=== PATIENT | male | born 1990 | race Caucasian/White ===

== ENCOUNTER → 2020-07-10 10:18 | Outpatient (BNVA) | payer OTHER, SELFPAY | PROVIDERS: Visit Provider Nurse Practitioner Family | DX: Z11.59 Encounter for screening for other viral diseases (principal); Z20.828 Contact with and (suspected) exposure to other viral communicable diseases; J06.9 Acute upper respiratory infection, unspecified | CPT/HCPCS: 87635 ==

== ENCOUNTER 2021-04-04 06:34 | Emergency (ER) | payer BC, SELFPAY ==
[2021-04-04 06:55] VITALS: BP 134/85; PULSE 81; RESP 18; TEMP 37.1; O2SAT 99; BMI 20.9
--- NOTE | 2021-04-04 07:03 | ED_ITS ---
HPI - Extremity Problem General: Chief complaint: Extremity Problem,Nontraumatic Stated complaint: R shoulder pain Time Seen by Provider: 04/04/21 07:03 History of Present Illness: HPI Narrative: Patient is a 31-year-old male who comes to the ED with right shoulder pain. Patient has been having this pain for about a week now. Pain is located in the right shoulder blade region. Any abduction of right arm causes and pain. Denies any injury or trauma. Patient works as a manual ammunition assembly i laborer. Associated symptoms: Deny chest pain, fever(s) or rash Review of Systems Const: Denies: fever(s), chills or fatigue Eyes: Denies: change in vision or eye discomfort ENMT: Denies: throat pain, odynophagia, nasal discharge or nasal congestion Card: Denies: chest pain, palpitations, edema, swelling of feet/ankles, dyspnea on exertion or orthopnea Resp: Denies: dyspnea, productive cough or non-productive cough GI: Denies: abdominal pain, nausea, vomiting, diarrhea, constipation or hematochezia : Denies: flank pain, difficulty urinating, dysuria or hematuria Musc: Reports: extremity pain (right shoulder); Denies: neck pain, back pain or extremity swelling Skin/Breast: Denies: rash or new lesions Neuro: Denies: headache(s), numbness in extremities or weakness in extremities Physical Exam Const: COMMON NORMALS: no acute distress, patient oriented x3 and alert GENERAL APPEARANCE: cooperative and comfortable HENMT: COMMON NORMALS: normocephalic HEAD & SCALP: normocephalic MOUTH: Normal oral and palatal mucosa present THROAT: posterior oropharynx normal and uvula midline Neck/C-Spine: COMMON NORMALS: supple GENERAL: Yes normal visual inspection Resp: COMMON NORMALS: normal respiratory effort, No retractions, No use of accessory muscles and clear to auscultation bilaterally AUSCULTATION: clear to auscultation bilaterally Cardio: COMMON NORMALS: regular rate, regular rhythm, S1 normal heart sound present, S2 normal heart sound present, No gallops present (Cardio), No clicks present (Cardio), No murmurs present (Cardio) and Peripheral pulses 2+ throughout RATE: regular rate RHYTHM: regular rhythm HEART SOUNDS: S1 normal heart sound present and S2 normal heart sound present PERIPHERAL PULSES: Peripheral pulses 2+ throughout GI: COMMON NORMALS: Normal to inspection, nondistended, normoactive bowel sounds present, Soft to palpation, non-tender and no masses PALPATION: Yes Soft to palpation : COMMON NORMALS: Yes no CVA tenderness BLADDER/KIDNEY EXAM: Yes no CVA tenderness Back/Pelvis: COMMON NORMALS: no CVA tenderness Extremity: NARRATIVE EXTREMITY EXAM: Right shoulder?point soft tissue muscle tenderness on the inferior aspect of shoulder blade. No visible deformity seen. Range of motion normal. Neurovascular intact. Neuro: COMMON NORMALS: patient oriented x3 and moves all extremities SENSORIUM/ORIENTATION: Yes alert Skin: GENERAL SKIN EXAM: dry skin Course Vital Signs: Vital signs: Vital Signs Temperature 98.7 F 04/04/21 06:55 Pulse Rate 61 04/04/21 07:07 Respiratory Rate 15 04/04/21 07:07 Blood Pressure 128/77 04/04/21 07:07 Pulse Oximetry 99 04/04/21 07:07 MDM - Extremity (Nontraumatic) Imaging Data^: Xray Ortho: Attestation: I personally reviewed and interpreted this imaging study as follows: Radiologist's impression: [address], [place] [address]MLkh ReportSigned Patient: Roberto Ahn LUnmorales #: [id number]: 1990Acct#:[id number]/Sex: 31 MADM Date: 04/04/21Loc: ERRoom/Bed:Attending Dr: Ordering Provider/Ordering MD: Miguel Berry Date of Service: 04/04/21 Procedure(s): XR shoulder RT min 2V* [id number] Accession Number(s): [id number] Report Number: [id number] PROCEDURE INFORMATION: Exam: XR Right Shoulder Exam date and time: 04/04/2021 7:18 AM Age: 31 years old Clinical indication: Pain; Shoulder; Right; Additional info: Shoulder pain TECHNIQUE: Imaging protocol: XR Right shoulder. Views: 2 or more views. COMPARISON: No relevant prior studies available. FINDINGS: Bones/joints: No acute osseous pathology. Soft tissues: Unremarkable soft tissues. Other findings: Anatomic alignment. XR/XR shoulder RT min 2V* [id number] IMPRESSION: No acute osseous pathology. Dictated By:Carlitos Nagel MDSigned By:Carlitos Nagel MDSigned Date/Time:04/04/21 0950DD/ Discharge Plan Discharge Patient Disposition: Home Clinical Impression: Muscle strain of right shoulder region Qualifiers: Encounter type: initial encounter Qualified Code(s): S46.911A - Strain of unspecified muscle, fascia and tendon at shoulder and upper arm level, right arm, initial encounter Condition: Stable Prescriptions: New Celebrex 100 mg capsule 100 mg PO BID Qty: 20 RF: 0 cyclobenzaprine 10 mg tablet 10 mg PO BID PRN (Reason: muscle spasm) Qty: 12 RF: 0 No Action No Known Home Medications RF: 0 Discharge Orders: Discharge ED (Routine); Ordered 04/04/21 Ordered By: Miguel Berry Discharge Diet: Regular Discharge Activity: Increase activity as tolerated Patient Instructions: Muscle Strain (ED) Activity Restrictions/Additional Instructions: Follow-up with medical provider as directed in 7 to 10 days reevaluation. Wear shoulder sling for the next 1 to 2 days to allow the right shoulder to rest and heal. Remember though to take out your right arm from sling multiple times over the next 48 hours to do some range of motion exercises to prevent frozen shoulder. Take medications as prescribed. Apply cold pack on right shoulder area as well. Return to the ER or your medical provider if condition worsens. Please read and understand discharge instructions. Thank you for choosing [facility] for your healthcare needs today. Please realize this is an emergency room and that we are providing you with a medical screening exam and this may not be complete and all inclusive of all the testing and or work up that you may need to determine your ailment or severity of your illness. It is very important that you follow up as instructed or that you return to the Emergency Department should you have concerns or if your condition changes or worsens in any way. Stand Alone Forms: Work/School Release Coding Level of Care Code ED Genetics Nurse for Samreen Gay Exam Comprehensive
[2021-04-04 07:07] VITALS: BP 128/77; PULSE 61; RESP 15; O2SAT 99
--- NOTE | 2021-04-04 07:18 | XRR_ITS ---
PROCEDURE INFORMATION: Exam: XR Right Shoulder Exam date and time: 04/04/2021 7:18 AM Age: 31 years old Clinical indication: Pain; Shoulder; Right; Additional info: Shoulder pain TECHNIQUE: Imaging protocol: XR Right shoulder. Views: 2 or more views. COMPARISON: No relevant prior studies available. FINDINGS: Bones/joints: No acute osseous pathology. Soft tissues: Unremarkable soft tissues. Other findings: Anatomic alignment. XR/XR shoulder RT min 2V* [id number] IMPRESSION: No acute osseous pathology.
[2021-04-04] MEDS: orphenadrine 30 mg/mL Inj 2 mL 60 MG IM (07:24)
[2021-04-04] MEDS: ketorolac 60 mg/2 mL INJ IM (07:24)
== END 2021-04-04 07:54 | disposition home or self-care (01) ==
PROVIDERS: Emergency Provider Physician Assistant
DX: S46.911A Strain of unspecified muscle, fascia and tendon at shoulder and upper arm level, right arm, initial encounter (principal); X58.XXXA Exposure to other specified factors, initial encounter
CPT/HCPCS: 73030; 96372; 99283; J1885; J2360

== ENCOUNTER 2021-05-27 11:24 | Outpatient (CLI) | payer BC, SELFPAY ==
[2021-05-27 12:12] LABS: Sperm Present Sperm Not Present
== END 2021-05-27 11:25 | disposition home or self-care (01) ==
LOC: LAB 11:29
PROVIDERS: Visit Provider Urology
DX: Z98.52 Vasectomy status (principal)
CPT/HCPCS: 89310

== ENCOUNTER 2021-08-22 23:35 | Emergency (ER) | payer BC, SELFPAY ==
[2021-08-22 23:40] VITALS: BP 130/84; PULSE 78; RESP 18; TEMP 36.4; O2SAT 100; BMI 21.0
--- NOTE | 2021-08-23 03:53 | XRR_ITS ---
PROCEDURE INFORMATION: Exam: XR Thoracic Spine Exam date and time: 08/23/2021 3:53 AM Age: 31 years old Clinical indication: Pain in thoracic spine; Additional info: Upper back pain TECHNIQUE: Imaging protocol: XR of the thoracic spine. Views: 3 views. COMPARISON: No relevant prior studies available. FINDINGS: Bones/joints: Normal. No acute fracture. Normal alignment. Soft tissues: Unremarkable. XR/XR thoracic spine 3V* [id number] IMPRESSION: No acute findings. Radiation Dose CTDIVOL = (mGy): DLP = (mGy-cm)
--- NOTE | 2021-08-23 04:12 | ED_ITS ---
HPI - Back Pain/Injury General: Chief Complaint: Back Pain/Injury Stated Complaint: Upper back pain Time Seen by Provider: 08/23/21 03:40 History of Present Illness: HPI Narrative: 31-year-old male who claims his left upper back started hurting a couple of days ago. It was made worse yesterday evening at work, and he came here after he clocked out of work due to the pain. He localizes the pain along the medial scapular border on the left. No cough, no fever, no shortness of breath, no chest pain. No pain with deep breathing. No known injury. MD elicited complaint: back pain Pertinent past history: prior back pain Onset (ago): hour(s) Timing: constant and progressively worsening Quality: sharp Location: thoracic spine Radiation: none Exacerbating factors: movement Relieving factors: none Context: unknown Associated symptoms: Deny abdominal pain, dysuria, fever(s), hematuria, nausea, numbness or tingling/numbness/burning Review of Systems Const: Denies: fever(s) Card: Denies: chest pain or palpitations Resp: Denies: dyspnea, productive cough or non-productive cough GI: Denies: abdominal pain or nausea : Denies: dysuria or hematuria Physical Exam Const: COMMON NORMALS: no acute distress, patient oriented x3 and alert GENERAL APPEARANCE: not ill appearing HENMT: COMMON NORMALS: normocephalic and atraumatic HEAD & SCALP: normocephalic and atraumatic Eye: COMMON NORMALS: Equal, round and reactive pupils present and EOMs intact bilaterally PUPIL: Yes Equal, round and reactive pupils present Chest: COMMONS NORMALS: normal inspection of the chest Resp: COMMON NORMALS: normal respiratory effort, No use of accessory muscles and clear to auscultation bilaterally AUSCULTATION: clear to auscultation bilaterally Cardio: COMMON NORMALS: regular rate and regular rhythm RATE: regular rate RHYTHM: regular rhythm GI: COMMON NORMALS: Normal to inspection, nondistended, normoactive bowel sounds present, Soft to palpation and non-tender PALPATION: Yes Soft to palpation Back/Pelvis: COMMON NORMALS: thoracic and lumbar spine normal to inspection THORACIC SPINE/UPPER BACK: Yes thoracic spinal tenderness (on left. no midline) T-spine tenderness location: T7 and T8 Neuro: COMMON NORMALS: patient oriented x3 SENSORIUM/ORIENTATION: Yes alert Course Vital Signs: Vital signs: Vital Signs Temperature 97.6 F 08/22/21 23:40 Pulse Rate 78 08/22/21 23:40 Respiratory Rate 18 08/22/21 23:40 Blood Pressure 130/84 08/22/21 23:40 Pulse Oximetry 100 08/22/21 23:40 MDM - Back Pain/Injury MDM Narrative: Medical decision making narrative: X-ray negative for subluxation, fracture, or pneumothorax. Discharge Plan Discharge Patient Disposition: Home Clinical Impression: Thoracic back pain Qualifiers: Chronicity: acute Back pain laterality: left Qualified Code(s): M54.6 - Pain in thoracic spine Condition: Stable Prescriptions: New ketorolac 10 mg tablet 10 mg PO TID PRN (Reason: pain) Qty: 10 RF: 0 Continued cyclobenzaprine 10 mg tablet 10 mg PO BID PRN (Reason: muscle spasm) Qty: 12 RF: 0 Discontinued celecoxib [Celebrex] 100 mg capsule 100 mg PO BID Qty: 20 RF: 0 Discharge Orders: Discharge ED (Routine); Ordered 08/23/21 Ordered By: Porter Lopez Patient Instructions: Opioid Safety Activity Restrictions/Additional Instructions: Return for fever greater than 100, cough, shortness of breath, chest pain with the back pain, any other concerning symptoms. Coding Level of Care Code ED Construction Supervisor for Samreen Fwd Exam Comprehensive
[2021-08-23 04:53] VITALS: BP 135/71; PULSE 74; RESP 18; O2SAT 97
[2021-08-23] MEDS: oxyCODONE-APAP 5-325 mg Tablet 2 TAB PO (04:53)
== END 2021-08-23 04:57 | disposition home or self-care (01) ==
PROVIDERS: Emergency Provider Emergency Medicine
DX: M54.6 Pain in thoracic spine (principal)
CPT/HCPCS: 72072; 99283

== ENCOUNTER 2022-04-15 22:34 | Emergency (ER) | payer BC, SELFPAY ==
--- NOTE | 2022-04-15 22:34 | CTR_ITS ---
PROCEDURE INFORMATION: Exam: CT Head Without Contrast Exam date and time: 04/15/2022 10:37 PM Age: 32 years old Clinical indication: Pain; Headache not specified; Patient HX: C/O sudden onset severe MYLES; Additional info: Headache severe TECHNIQUE: Imaging protocol: Computed tomography of the head without contrast. Radiation optimization: All CT scans at this facility use at least one of these dose optimization techniques: automated exposure control; mA and/or kV adjustment per patient size (includes targeted exams where dose is matched to clinical indication); or iterative reconstruction. COMPARISON: No relevant prior studies available. RADIATION DOSE METRICS: Total DLP (mGy-cm): 1261.98 FINDINGS: Brain: Mild prominence of the left cavernous sinus, (series 3, image 10) may represent partial volume averaging. No hemorrhage. Unremarkable white matter. No mass effect. Cerebral ventricles: No ventriculomegaly. Paranasal sinuses: Mild mucosal thickening in the ethmoid air cells and the sphenoid sinuses. Partially imaged minimal mucous thickening in the maxillary sinuses. A small bony septal spare extends to the left, in contact with the left middle turbinate. No fluid levels. Mastoid air cells: Visualized mastoid air cells are well aerated. Bones/joints: Unremarkable. No acute fracture. Soft tissues: Unremarkable. CT/CT head wo con* [id number] IMPRESSION: 1. Mild prominence of the left cavernous sinus, (series 3, image 10), may represent partial volume averaging. If symptoms persist, MRI of the brain without and with contrast can be performed for further evaluation. 2. Otherwise, no acute intracranial hemorrhage, mass effect, or midline shift. 3. Mild paranasal sinus disease as outlined. Findings were discussed with Dr. Patel by Dr. Alba on 04/15/2022 at 11:15 p.m. with read back comprehension and verification.
[2022-04-15 22:45] VITALS: BP 127/72; PULSE 61; RESP 20; O2SAT 98; BMI 20.9
--- NOTE | 2022-04-15 22:46 | ED_ITS ---
HPI - Headache General: Chief Complaint: Headache Stated Complaint: migraine Time Seen by Provider: 04/15/22 22:36 Source: patient and EMS Mode of arrival: EMS Limitations: no limitations History of Present Illness: 32-year-old male who states he has a history of migraines he states he starting a migraine headache today around 1-2 states is worsened throughout the day states his pain is currently 9 out of 10 he states it feels like his previous migraines he has photophobia and phonophobia. Denies any vomiting has had nausea denies any fevers or head injuries. Associated symptoms: Deny chest pain, fever(s), nausea, rash or vomiting Review of Systems Const: Denies: fever(s), chills, body aches or change in appetite Eyes: Denies: blurry vision or eye discomfort ENMT: Denies: throat pain or dental pain Card: Denies: chest pain Resp: Denies: dyspnea GI: Denies: abdominal pain, nausea, vomiting or diarrhea : Denies: dysuria Musc: Denies: neck pain or back pain Skin/Breast: Denies: rash Neuro: Reports: headache(s) Psych: Denies: depression Nitin/Lymph: Denies: easy bruising All/Imm: Denies: urticaria PFSH ED PFSH: Medical History (Updated 04/16/22 @ 01:35 by Lydia Patel MD) Migraine Social History (Updated 04/15/22 @ 22:47 by Lydia Patel MD) Substance/Drug Use: unknown Physical Exam Const: COMMON NORMALS: no acute distress, patient oriented x3 and healthy appearing HENMT: COMMON NORMALS: normocephalic and atraumatic HEAD & SCALP: normocephalic and atraumatic Eye: COMMON NORMALS: Equal, round and reactive pupils present and EOMs intact bilaterally PUPIL: Yes Equal, round and reactive pupils present Neck/C-Spine: COMMON NORMALS: full ROM and supple Chest: COMMONS NORMALS: normal inspection of the chest and normal palpation of entire chest wall Resp: COMMON NORMALS: normal respiratory effort, No retractions, No use of accessory muscles and clear to auscultation bilaterally AUSCULTATION: clear to auscultation bilaterally Cardio: COMMON NORMALS: regular rate, regular rhythm and No murmurs present (Cardio) RATE: regular rate RHYTHM: regular rhythm GI: COMMON NORMALS: Normal to inspection, nondistended, normoactive bowel sounds present, Soft to palpation, non-tender and no masses PALPATION: Yes Soft to palpation Extremity: COMMON NORMALS: normal to inspection and full ROM Neuro: COMMON NORMALS: patient oriented x3, moves all extremities and no focal motor deficits Psych: COMMON NORMALS: mental status grossly normal, Normal thought process present and cooperative THOUGHT PROCESS: Normal thought process present Skin: COMMON NORMALS: no rashes or lesions noted and no wounds GENERAL SKIN EXAM: no rashes or lesions noted Course Vital Signs: Vital signs: Vital Signs Pulse Rate 61 04/15/22 22:45 Respiratory Rate 20 H 04/15/22 22:45 Blood Pressure 127/72 04/15/22 22:45 Pulse Oximetry 98 04/15/22 22:45 MDM - Headache Medical Decision Making Patient presents here with headache that is likely migraine he feels much im proved here his head CT showed a possible abnormality in the venous sinus MRI showed no signs of venous sinus thrombosis MRI is negative he is stable for discharge he has no signs of meningitis he stable for discharge return if worsening. Lab Data : 04/15/22 22:40 04/15/22 22:[address] 04/15/22 22:34 IMPRESSION: 1. Mild prominence of the left cavernous sinus, (series 3, image 10), may represent partial volume averaging. If symptoms persist, MRI of the brain without and with contrast can be performed for further evaluation. 2. Otherwise, no acute intracranial hemorrhage, mass effect, or midline shift. 3. Mild paranasal sinus disease as outlined. Findings were discussed with Dr. Patel by Dr. Alba on 04/15/2022 at 11:15 p.m. with read back comprehension and verification. Head MRI 04/15/22 23:13 IMPRESSION: 1. Redemonstration of asymmetric prominence of the left cavernous sinus which is likely a normal variant. No evidence of dural venous sinus thrombosis or underlying max is 6 lesions. 2. No evidence of restricted diffusion to suggest an acute infarction. 3. No evidence of abnormally enhancing lesions. 4. Redemonstration of nasal septal deviation to the left with a septal spur in contact with the left inferior turbinate. Contact point headache may contribute to patient's symptoms. Laboratory Results WBC 14.6 10^3/uL (4.0-10.0) H 04/15/22 22:40 RBC 5.33 10^6/uL (4.1-5.3) H 04/15/22 22:40 Hgb 16.3 g/dL (11.7-16.6) 04/15/22 22:40 Hct 48.1 % (42.0-52.0) 04/15/22 22:40 MCV 90.2 fl (80-94) 04/15/22 22:40 MCH 30.6 pg (28.0-34.0) 04/15/22 22:40 MCHC 33.9 g/dL (30.0-36.0) 04/15/22 22:40 RDW 12.9 % (12.1-15.1) 04/15/22:40 Plt Count 402 10^3/cmm (130-400) H 04/15/22 22:40 MPV 10.7 fL (7.4-10.4) H 04/15/22 22:40 Neut % (Auto) 49.8 % 04/15/22 22:40 Lymph % (Auto) 38.7 % 04/15/22 22:40 Calvert % (Auto) 9.3 % 04/15/22 22:40 Eos % (Auto) 1.7 % 04/15/22 22:40 Baso % (Auto) 0.3 % 04/15/22 22:40 Neut # (Auto) 7.24 10^3/uL (1.8-7.7) 04/15/22 22:40 Lymph # (Auto) 5.6 10^3/uL (0.8-4.8) H 04/15/22 22:40 Calvert # (Auto) 1.4 10^3/uL (0.2-0.9) H 04/15/22 22:40 Eos # (Auto) 0.3 10^3/uL (0.0-0.8) 04/15/22 22:40 Baso # (Auto) 0.1 10^3/uL (0.0-0.1) 04/15/22 22:40 Nucleated RBC % (auto) 0 % 04/15/22:40 Nucleated RBCs # 0.0 /100WBC 04/15/22 22:40 Sodium 142 mmol/L (136-145) 04/15/22 22:40 Potassium 4.1 mmol/L (3.5-5.1) 04/15/22 22:40 Chloride 103 mmol/L (98-107) 04/15/22 22:40 Carbon Dioxide 27 mmol/L (22-29) 04/15/22 22:40 Anion Gap 16.1 (5-19) 04/15/22 22:40 BUN 19 mg/dL (6-20) 04/15/22 22:40 Creatinine 0.9 mg/dL (0.7-1.2) 04/15/22 22:40 GFR Calculation 97.8 mL/min (90-130) 04/15/22 22:40 Glucose 87 mg/dL (65-115) 04/15/22 22:40 Calculated Osmolality 296 mOsm/kg (285-295) H 04/15/22 22:40 Calcium 10.1 mg/dL (8.5-10.5) 04/15/22 22:40 Total Bilirubin 0.4 mg/dL (0.15-1.2) 04/15/22 22:40 AST 17 U/L (0-40) 04/15/22 22:40 ALT 19 U/L (0-41) 04/15/22 22:40 Alkaline Phosphatase 88 IU/L (40-130) 04/15/22 22:40 Total Protein 7.0 g/dL (6.6-8.7) 04/15/22 22:40 Albumin 4.6 g/dL (3.5-5.2) 04/15/22 22:40 Globulin 2.4 g/dL (1.3-4.6) 04/15/22 22:40 Discharge Plan Discharge Patient Disposition: Home Clinical Impression: Headache Prescriptions: No Action ketorolac 10 mg tablet 10 mg PO TID PRN (Reason: pain) Qty: 10 0RF cyclobenzaprine 10 mg tablet 10 mg PO BID PRN (Reason: muscle spasm) Qty: 12 0RF Discharge Orders: Discharge ED (Routine); Ordered 04/16/22 Ordered By: Lydia Patel Discharge Diet: Advance as tolerated Discharge Activity: Resume usual activity Patient Instructions: General Headache (ED) Coding Level of Care Code ED Cable Operator for Chg Fwd Exam Comprehensive
[2022-04-15] MEDS: diphenhydrAMINE 50 mg/mL SDV 1mL IVP (22:59)
[2022-04-15] MEDS: metoclopramide 5 mg/mL SDV 2 mL 10 MG IVP (22:59)
--- NOTE | 2022-04-15 23:13 | MRR_ITS ---
PROCEDURE INFORMATION: Exam: MR Head Without Contrast Exam date and time: 04/16/2022 12:18 AM Age: 32 years old Clinical indication: Altered mental status/memory loss; Additional info: MYLES TECHNIQUE: Imaging protocol: Magnetic resonance imaging of the head without contrast. COMPARISON: CT head wo con* [id number] 04/15/2022 10:37 PM FINDINGS: Some of the images are degraded due to motion artifact. Within this limitation: Brain: Redemonstration of asymmetric prominence of the left cavernous sinus which is likely a normal variant. No evidence of sinus thrombosis or underlying mass lesions. No acute infarct. No hemorrhage. Rare T2/FLAIR hyperintense lesions are nonspecific. No edema. No midline shift or significant mass effect. Cerebral ventricles: Stable. No ventriculomegaly. Bones/joints: Unremarkable. Paranasal sinuses: The nasal septum is deviated to the left with a septal spur deforming the left middle and inferior turbinates. Mild paranasal sinus disease is noted. No evidence of acute sinusitis. Mastoid air cells: Normal as visualized. No mastoid effusion. Orbital cavities: Unremarkable. Soft tissues: Unremarkable. MR/MR head wo/w con [id number] IMPRESSION: 1. Redemonstration of asymmetric prominence of the left cavernous sinus which is likely a normal variant. No evidence of dural venous sinus thrombosis or underlying max is 6 lesions. 2. No evidence of restricted diffusion to suggest an acute infarction. 3. No evidence of abnormally enhancing lesions. 4. Redemonstration of nasal septal deviation to the left with a septal spur in contact with the left inferior turbinate. Contact point headache may contribute to patient's symptoms.
[2022-04-15 23:45] LABS: Alanine Aminotransferase 19 U/L (0-41); Albumin Level 4.6 g/dL (3.5-5.2); Alkaline Phosphatase 88 IU/L (40-130); Anion Gap 16.1 (5-19); Aspartate Amino Transferase 17 U/L (0-40); Blood Urea Nitrogen 19 mg/dL (6-20); Calcium 10.1 mg/dL (8.5-10.5); Carbon Dioxide 27 mmol/L (22-29); Chloride 103 mmol/L (98-107); Globulin 2.4 g/dL (1.3-4.6); Glomerular Filtration Rate 97.8 mL/min (90-130); Glucose 87 mg/dL (65-115); Osmolality Calculated 296 mOsm/kg (285-295); Potassium 4.1 mmol/L (3.5-5.1); Sodium 142 mmol/L (136-145); Total Bilirubin 0.4 mg/dL (0.15-1.2)
[2022-04-16 00:04] LABS: Basophils # 0.1 10^3/uL (0.0-0.1); Basophils % 0.3 %; Eosinophils # 0.3 10^3/uL (0.0-0.8); Eosinophils % 1.7 %; Hematocrit 48.1 % (42.0-52.0); Hemoglobin 16.3 g/dL (11.7-16.6); Lymphocytes # 5.6 10^3/uL (0.8-4.8); Lymphocytes % 38.7 %; Mean Corpuscular HGB Conc 33.9 g/dL (30.0-36.0); Mean Corpuscular Hemoglobin 30.6 pg (28.0-34.0); Mean Corpuscular Volume 90.2 fl (80-94); Mean Platelet Volume 10.7 fL (7.4-10.4); Monocytes # 1.4 10^3/uL (0.2-0.9); Monocytes % 9.3 %; Neutrophils # 7.24 10^3/uL (1.8-7.7); Neutrophils % 49.8 %; Nucleated Red Blood Cells % 0 %; Platelet Count 402 10^3/cmm (130-400); Red Blood Count 5.33 10^6/uL (4.1-5.3); Red Cell Distribution Width 12.9 % (12.1-15.1); Slide Review Slide Review Perform; White Blood Count 14.6 10^3/uL (4.0-10.0)
[2022-04-16] MEDS: gadobenate dimeglumine 5 mL vial IV (00:35)
== END 2022-04-16 02:38 | disposition home or self-care (01) ==
PROVIDERS: Emergency Provider Emergency Medicine
DX: R51.9 Headache, unspecified (principal)
CPT/HCPCS: 70450; 70551; 70553; 80053; 85025; 96374; 96375; 99285; A9577; J1200; J2765

== ENCOUNTER 2022-04-27 20:54 | Emergency (ER) | payer BC, SELFPAY ==
[2022-04-27 21:03] VITALS: BP 134/83; PULSE 99; RESP 16; TEMP 36.9; O2SAT 99; BMI 20.9
--- NOTE | 2022-04-28 00:21 | W.ED.DENTAL ---
HPI - Dental/Oral General: Chief complaint: Dental/Oral Stated complaint: tooth pain Time Seen by Provider: 04/28/22 00:15 Source: patient Mode of arrival: ambulatory Limitations: no limitations History of Present Illness: Patient is a 32-year-old male who presents to ED today with a complaint of pain to a left lower molar. Patient states he has had pain in the tooth for approximately a week and now. He was seen recently by dentist and placed on oral amoxicillin twice daily for 10 days. Patient states he has had close to 48 hours of antibiotic therapy and does not feel much of an improvement. He has not noticed any facial or neck swelling. He is eating and drinking normally. No difficulty swallowing or breathing. He has not been running fevers. MD Complaint: tooth pain Teeth map: 1. Onset (ago): day(s) Duration: constant Severity: moderate Relieving factors: nothing Exacerbating factors: nothing Context: history of dental caries and poor dental care Associated symptoms: Reports no associated symptoms; Denies ear or mastoid pain, fever(s) or odynophagia Treatment prior to arrival: other (abx) Review of Systems Const: Denies: fever(s), chills, body aches, fatigue or malaise Eyes: Denies: change in vision, blurry vision, photophobia, floaters or seeing flashes ENMT: Reports: dental pain; Denies: throat pain, odynophagia, swelling of lips/tongue, oral sores or ear or mastoid pain Card: Denies: chest pain Resp: Denies: dyspnea GI: Denies: nausea or vomiting Musc: Denies: neck pain Skin/Breast: Denies: rash [facility] ED PFSH: Medical History Migraine Physical Exam Const: COMMON NORMALS: no acute distress, patient oriented x3, no limitations and alert GENERAL APPEARANCE: cooperative HENMT: COMMON NORMALS: normocephalic and atraumatic HEAD & SCALP: normal to inspection, normocephalic and atraumatic FACE & SINUS: normal facial exam; no erythema, no edema and no fluctuance MOUTH: Normal oral and palatal mucosa present, lip normal, tongue normal and other (floor of mouth is soft and non-raised) TEETH & GINGIVA: Yes caries, Yes poor dentition and Yes other (pt has severe widespread dental decay) TEETH & GINGIVA IMAGES: 1. severe decay to L lower molar; small gingival abscess noted; milking gingiva causes purulent drainage from decayed tooth base; no obvious drainable abscess at this time; gingivitis THROAT: posterior oropharynx normal, tonsils normal and uvula midline Eye: GENERAL EYE: appearance normal, both eyes and all related structures Neck/C-Spine: COMMON NORMALS: no lymphadenopathy GENERAL: Yes normal visual inspection, No anterior neck swelling and No submandibular swelling Resp: COMMON NORMALS: normal respiratory effort Cardio: COMMON NORMALS: regular rate and regular rhythm RATE: regular rate RHYTHM: regular rhythm Neuro: OSVALDO COMA SCALE: document [facility] findings [place] coma scale eye opening: Spontaneous Osvaldo coma scale verbal response: Orientated Osvaldo coma scale motor response: Obey commands Osvaldo coma scale total score: 15 COMMON NORMALS: patient oriented x3, CN's II-XII intact bilaterally, moves all extremities, no focal motor deficits and no sensory deficits noted SENSORIUM/ORIENTATION: Yes alert Skin: COMMON NORMALS: no rashes or lesions noted GENERAL SKIN EXAM: no rashes or lesions noted Course Vital Signs: Vital signs: Vital Signs Temperature 98.4 F 04/27/22 21:03 Pulse Rate 99 04/27/22 21:03 Respiratory Rate 16 04/27/22 21:03 Blood Pressure 134/83 04/27/22 21:03 Pulse Oximetry 99 04/27/22 21:03 Oxygen Delivery Me thod 04/27/22 21:03 MDM - Dental/Oral Medical Decision Making Patient most likely just now therapeutic on his antibiotics. He still has another 8 days of these so I recommend he continue this. We will write him for some Peridex. He has no drainable abscess at this time. Recommend he follow-up with the dentist as soon as possible for further evaluation and treatment of his widespread severe periodontal disease. Return to ED precautions given. Discharge Plan Discharge Patient Disposition: Home Clinical Impression: Dental caries, Toothache, Dental abscess Condition: Stable Prescriptions: New Peridex 0.12 % mouthwash 15 ml BUCCAL BID Qty: 473 0RF Rx Instructions: Swish in mouth for 60 seconds then spit. Do twice daily. No Action ketorolac 10 mg tablet 10 mg PO TID PRN (Reason: pain) Qty: 10 0RF cyclobenzaprine 10 mg tablet 10 mg PO BID PRN (Reason: muscle spasm) Qty: 12 0RF Discharge Orders: Discharge ED (Routine); Ordered 04/28/22 Ordered By: Sommer Felix Patient Instructions: Dental Caries (Cavities), Dental Abscess (ED), Toothache (ED) Coding Level of Care Code ED Inspector Balance Wheel Motion for Chg Fwd Exam Comprehensive
[2022-04-28] MEDS: ketorolac 60 mg/2 mL INJ IM (00:45)
[2022-04-28] MEDS: clindamycin 150 mg/mL SDV 6 mL 600 MG IM (00:46)
== END 2022-04-28 01:02 | disposition home or self-care (01) ==
PROVIDERS: Emergency Provider Physician Assistant
DX: K02.9 Dental caries, unspecified (principal); K04.7 Periapical abscess without sinus
CPT/HCPCS: 96372; 99284; J1885; J3490